=== PATIENT | male | born 1955 | race American Indian/Alaskan Native ===

== ENCOUNTER 2018-01-07 12:10 | Emergency (ER) | payer SELFPAY ==
[2018-01-07] MEDS ORDERED: NACL 0.9% 1000 ML 1,000 ML IV ONE (12:47)
[2018-01-07 13:09] LABS: Basophils % (Auto) 1.1 % (0.0-1.8); Eosinophils # (Auto) 0.1 K/mm3 (0.0-0.4); Eosinophils % (Auto) 2.2 % (0.0-4.3); Hematocrit 35.6 % (35.5-45.6); Hemoglobin 11.7 gm/dl (11.8-15.2); Lymphocytes # (Auto) 1.7 K/mm3 (1.2-5.4); Lymphocytes % (Auto) 37.8 % (13.4-35.0); Mean Corpuscular HGB Conc 33 % (32-34); Mean Corpuscular Hemoglobin 30 pg (28-32); Mean Corpuscular Volume 91 fl (84-94); Monocytes # (Auto) 0.2 K/mm3 (0.0-0.8); Monocytes % (Auto) 4.8 % (0.0-7.3); Platelet Count 233 K/mm3 (140-440); Red Blood Count 3.92 M/mm3 (3.65-5.03)
[2018-01-07 13:23] LABS: Bilirubin,Urine NEG (Negative); Blood,Urine SM (Negative); Color,Urine Yellow (Yellow); Mucus,Urine FEW /HPF; Urobilinogen,Urine < 2.0 mg/dL (<2.0); WBC,Urine < 1.0 /HPF (0.0-6.0)
[2018-01-07 13:25] LABS: Alanine Aminotransferase 11 units/L (7-56); Albumin 4.3 g/dL (3.9-5); BUN/Creatinine Ratio 10; Blood Urea Nitrogen 9 mg/dL (9-20); Calcium 9.2 mg/dL (8.4-10.2); Hemolysis Index 2; Lipase 101 units/L (13-60)
[2018-01-08 00:42] VITALS: BP 186/93
--- NOTE | 2018-01-08 02:15 | Emergency Department Report ---
ED Abdominal Pain HPI - General Chief Complaint: Abdominal Pain Stated Complaint: STOMACH PAIN Time Seen by Provider: 01/08/18 01:36 Source: patient Mode of arrival: Ambulatory Limitations: No Limitations - History of Present Illness Initial Comments: Patient is 62 years old male with history of diabetes. Patient present to the ER complaining of abdominal pain and diarrhea for the last 8 month. Patient stated that had a CT abdomen and pelvis last week that showed a mass on the left kidney suspicious for renal neoplasm. Patient stated that his primary care doctor [place] asked him to come to the ER for further evaluation. Patient denied any nausea or vomiting but he stated that he been having diarrhea for the last 8 month everything that he eat go through. MD Complaint: abdominal pain Severity scale (0 -10): 6 - Related Data Allergies Allergy/AdvReac Type Severity Reaction Status Date / Time No Known Allergies Allergy Unverified 01/07/18 12:47 ED Review of Systems ROS: Stated complaint: STOMACH PAIN Other details as noted in HPI Comment: All other systems reviewed and negative Constitutional: denies: chills, fever Respiratory: denies: cough, orthopnea, shortness of breath, SOB with exertion, SOB at rest, wheezing Cardiovascular: denies: chest pain, palpitations Gastrointestinal: abdominal pain, nausea. denies: vomiting, diarrhea, constipation, hematemesis, melena, hematochezia Musculoskeletal: denies: back pain Skin: denies: rash Neurological: denies: headache, weakness, numbness, paresthesias, confusion, abnormal gait ED Past Medical Hx - Past Medical History Hx Diabetes: Yes Additional medical history: Pancreatitis - Surgical History Past Surgical History?: No - Social History Smoking Status: Former Smoker Substance Use Type: Alcohol ED Physical Exam - General Limitations: No Limitations General appearance: alert, in no apparent distress - Head Head exam: Present: atraumatic, normocephalic, normal inspection - Eye Eye exam: Present: normal appearance - ENT ENT exam: Present: normal exam, normal orophraynx, mucous membranes moist - Neck Neck exam: Present: normal inspection, full ROM. Absent: tenderness, meningismus - Respiratory Respiratory exam: Present: normal lung sounds bilaterally. Absent: respiratory distress, wheezes, rales, rhonchi, accessory muscle use, decreased breath sounds , prolonged expiratory - Cardiovascular Cardiovascular Exam: Present: regular rate, normal rhythm, normal heart sounds - GI/Abdominal GI/Abdominal exam: Present: soft, normal bowel sounds. Absent: distended, tenderness, guarding, rebound, rigid, organomegaly, mass, bruit, pulsatile mass , hernia - Extremities Exam Extremities exam: Present: normal inspection, full ROM, normal capillary refill. Absent: pedal edema, calf tenderness - Back Exam Back exam: Present: normal inspection, full ROM. Absent: CVA tenderness (L) - Neurological Exam Neurological exam: Present: alert, oriented X3, CN II-XII intact, normal gait - Skin Skin exam: Present: warm, intact, normal color ED Course Vital Signs 01/07/18 01/07/18 01/08/18 12:42 18:56 00:40 Temperature 99.1 F 97.8 F Pulse Rate 80 67 60 Respiratory 18 18 18 Rate Blood Pressure 155/95 172/92 Blood Pressure 186/93 [Left] O2 Sat by Pulse 100 95 100 Oximetry ED Medical Decision Making - Lab Data Result diagrams: 01/07/18 12:54 01/07/18 12:51 - Medical Decision Making I reviewed patient CT abdomen and pelvis that was done on 12/25/2017. The impression showed that there is a 2 cm exophytic mass involving the posterior aspect of the lower pole of the left kidney is suspicious for renal neoplasm. Patient at this moment is denying any pain. He also denied any nausea or vomiting he is also concerned about his diarrhea now. I discussed with the patient the need for follow-up as an outpatient for the kidney mass I will give him Dr. Aiken to follow-up with and patient is going to follow up with his primary care physician and his GI doctor for the diarrhea. Patient stated that the antibiotic for the diarrhea help him last time and he would like to have another prescription for that. Critical care attestation.: If time is entered above; I have spent that time in minutes in the direct care of this critically ill patient, excluding procedure time. ED Disposition Clinical Impression: Abdominal pain, Diarrhea Disposition: - TO HOME OR SELFCARE Is pt being admited?: No Condition: Stable Instructions: Chronic Diarrhea (ED), Abdominal Pain (ED) Referrals: DENISE AIKEN MD [Staff Physician] - 3-5 Days
== END 2018-01-08 03:03 | disposition home or self-care (01) ==
LOC: ED 12:10
DX: R10.30 Lower abdominal pain, unspecified (principal); R19.7 Diarrhea, unspecified; E11.9 Type 2 diabetes mellitus without complications; Z87.891 Personal history of nicotine dependence
CPT/HCPCS: 36415; 80053; 81001; 83690; 85025; 99283